=== PATIENT | female | born 2000 | race Caucasian/White ===

== ENCOUNTER 2018-06-24 13:58 | Inpatient (IN) | payer OTHER ==
[2018-06-24] MEDS ORDERED: IBUPROFEN 600 MG TAB PO (15:00)
[2018-06-24] MEDS ORDERED: LIDOCAINE 1% (MPF) 30 ML INJ INJ (15:00)
[2018-06-24] MEDS ORDERED: METHYLERGONOVINE 0.2 MG INJ IM ×2 (15:00→23:00)
[2018-06-24] MEDS ORDERED: MISOPROSTOL 200 MCG TAB PR ×2 (15:00→23:00)
[2018-06-24] MEDS ORDERED: BUTORPHANOL 2 MG INJ IV (15:00)
[2018-06-24] MEDS ORDERED: CARBOPROST 250 MCG INJ IM ×2 (15:00→23:00)
[2018-06-24] MEDS: LACTATED RINGER'S 1,000 ML IV* ×3 (15:22→22:58)
[2018-06-24] MEDS: AMPICILLIN 2 GM/NS (PMX) 100 ML IV (15:23)
[2018-06-24 15:45] LABS: ADD MAN DIFF? NO
[2018-06-24 15:47] LABS: WHITE BLOOD COUNT 19.3 10^3/ul (4.8-10.8)
[2018-06-24 15:47] LABS: BASOPHIL # 0.1 10^3/ul (0.0-0.1); BASOPHILS % 0.3 % (0.0-2.0); EOSINOPHILS % 0.1 % (0.0-7.0); HEMATOCRIT 38.8 % (37.0-47.0); HEMOGLOBIN 13.1 g/dl (12.0-16.0); LYMPHOCYTES # 1.6 10^3/ul (0.8-2.9); LYMPHOCYTES % 8.3 % (18.0-55.0); MEAN CORPUSCULAR HEMOGLOBIN 32.5 pg (29.0-33.0); MEAN CORPUSCULAR HGB CONC 33.8 g/dl (32.0-37.0); MEAN CORPUSCULAR VOLUME 96.3 fl (72.0-104.0); MEAN PLATELET VOLUME 10.5 fl (7.4-10.4); MONOCYTE # 0.8 10^3/ul (0.3-0.9); NEUTROPHIL # 16.7 10^3/ul (1.6-7.5); NEUTROPHILS % 86.4 % (30.0-74.0); PLATELET COUNT 257 10^3/UL (140-415); RED BLOOD COUNT 4.03 10^6/ul (4.20-5.40); RED CELL DISTRIBUTION WIDTH 12.2 % (11.5-14.5)
[2018-06-24 16:07] LABS: INR 0.87; PROTIME 11.9 Sec (11.9-14.9); PT RATIO 0.9
[2018-06-24 16:08] LABS: PARTIAL THROMBOPLASTIN TIME 27.3 Sec (25.0-35.0)
[2018-06-24] MEDS ORDERED: FENTAnyl 2MCG/ML-ROPIV 0.2% 100 ML (16:29)
[2018-06-24 16:49] LABS: HEPATITIS B SURFACE ANTIGEN NEGATIVE (NEGATIVE)
[2018-06-24] MEDS: FENTAnyl 2MCG/ML-ROPIV 0.2% 100 ML BAG EPI (16:53)
[2018-06-24] MEDS ORDERED: ONDANSETRON 4 MG INJ IV (17:00)
[2018-06-24] MEDS ORDERED: DIPHENHYDRAMINE 50 MG INJ IV (17:00)
[2018-06-24] MEDS ORDERED: NALOXONE (0.4 MG/ML) INJ IV (17:00)
[2018-06-24] MEDS: MINERAL OIL LIGHT 10 ML VIAL TOP (19:00)
[2018-06-24] MEDS: AMPICILLIN 1 GM/NS (PMX) 50 ML IV (19:03)
[2018-06-24 19:56] LABS: ADD UMIC YES; UR AMORPHOUS CRYSTAL FEW /HPF (NONE SEEN); UR ASCORBIC ACID 40 mg/dL (NEGATIVE); UR BILIRUBIN (Dip) NEGATIVE (NEGATIVE); UR BLOOD (Dip) NEGATIVE (NEGATIVE); UR CLARITY CLOUDY (CLEAR); UR COLOR YELLOW (YELLOW); UR GLUCOSE (Dip) NEGATIVE (NEGATIVE); UR KETONES (Dip) 2+ mg/dL (NEGATIVE); UR LEUKOCYTE ESTERASE (Dip) NEGATIVE Leu/ul (NEGATIVE); UR NITRITE (Dip) NEGATIVE (NEGATIVE); UR RBC 3 /HPF (0-5); UR SPECIFIC GRAVITY (Dip) 1.024 (1.003-1.030); UR TOTAL PROTEIN (Dip) NEGATIVE (NEGATIVE); UR UROBILINOGEN (Dip) NEGATIVE (NEGATIVE); UR WBC 5 /HPF (0-5)
[2018-06-24] MEDS: OXYTOCIN 30 UNITS/LR 500 ML IV ×2 (20:41→20:42)
[2018-06-24] MEDS ORDERED: OXYTOCIN 30 UNITS/LR 500 ML IV (23:00)
[2018-06-24] MEDS ORDERED: HYDROCODONE/APAP (5/325) TAB PO ×2 (23:00)
[2018-06-24] MEDS ORDERED: ZOLPIDEM 5 MG TAB PO (23:00)
[2018-06-24] MEDS ORDERED: DIBUCAINE 1% 30 GM OINT PR (23:00)
[2018-06-24] MEDS: LANOLIN 7 GM TUBE TOP (23:21)
[2018-06-24] MEDS: BENZOCAINE 20% 56 ML SPRAY TOP (23:21)
[2018-06-24] MEDS: WITCH HAZEL/GLYCERIN PAD PR (23:21)
[2018-06-24] MEDS: CEPHALEXIN 500 MG CAP PO (23:21)
[2018-06-24] MEDS: IBUPROFEN 600 MG TAB PO (23:22)
[2018-06-25] MEDS: CEPHALEXIN 500 MG CAP PO ×4 (05:33→23:48)
[2018-06-25] MEDS: IBUPROFEN 600 MG TAB PO ×4 (05:33→23:48)
[2018-06-25] MEDS: LACTATED RINGER'S 1,000 ML IV* (06:58)
[2018-06-25 07:59] LABS: ADD MAN DIFF? NO
[2018-06-25 08:05] LABS: BASOPHILS % 0.3 % (0.0-2.0); EOSINOPHILS # 0.1 10^3/ul (0.0-0.5); EOSINOPHILS % 0.8 % (0.0-7.0); HEMATOCRIT 32.8 % (37.0-47.0); HEMOGLOBIN 10.9 g/dl (12.0-16.0); LYMPHOCYTES # 2.1 10^3/ul (0.8-2.9); LYMPHOCYTES % 13.3 % (18.0-55.0); MEAN CORPUSCULAR HEMOGLOBIN 32.1 pg (29.0-33.0); MEAN CORPUSCULAR HGB CONC 33.2 g/dl (32.0-37.0); MEAN CORPUSCULAR VOLUME 96.5 fl (72.0-104.0); MEAN PLATELET VOLUME 9.9 fl (7.4-10.4); MONOCYTES % 6.5 % (0.0-13.0); NEUTROPHIL # 12.2 10^3/ul (1.6-7.5); NEUTROPHILS % 78.1 % (30.0-74.0); PLATELET COUNT 203 10^3/UL (140-415); RED CELL DISTRIBUTION WIDTH 12.3 % (11.5-14.5)
[2018-06-25 08:05] LABS: WHITE BLOOD COUNT 15.6 10^3/ul (4.8-10.8)
[2018-06-25] MEDS: MAGNESIUM HYDROXIDE 30ML CUP PO ×2 (08:45→21:11)
[2018-06-25] MEDS: SENNA/DOCUSATE NA (8.6MG/50MG) TAB PO ×2 (08:46→21:11)
[2018-06-25] MEDS: MEASLES,MUMPS,RUBELLA VACCINE INJ SC* (12:53)
[2018-06-25 15:15] LABS: RAPID PLASMA REAGIN NONREACTIVE (NR)
[2018-06-26] MEDS: IBUPROFEN 600 MG TAB PO ×3 (05:49→18:22)
[2018-06-26] MEDS: CEPHALEXIN 500 MG CAP PO ×3 (05:49→18:22)
[2018-06-26 08:08] LABS: ADD MAN DIFF? NO
[2018-06-26 08:17] LABS: WHITE BLOOD COUNT 11.1 10^3/ul (4.8-10.8)
[2018-06-26 08:17] LABS: BASOPHILS % 0.4 % (0.0-2.0); EOSINOPHILS # 0.2 10^3/ul (0.0-0.5); HEMATOCRIT 31.8 % (37.0-47.0); HEMOGLOBIN 10.6 g/dl (12.0-16.0); LYMPHOCYTES # 1.9 10^3/ul (0.8-2.9); LYMPHOCYTES % 17.3 % (18.0-55.0); MEAN CORPUSCULAR HEMOGLOBIN 32.9 pg (29.0-33.0); MEAN CORPUSCULAR HGB CONC 33.3 g/dl (32.0-37.0); MEAN CORPUSCULAR VOLUME 98.8 fl (72.0-104.0); MONOCYTE # 0.7 10^3/ul (0.3-0.9); MONOCYTES % 6.7 % (0.0-13.0); NEUTROPHIL # 8.1 10^3/ul (1.6-7.5); NEUTROPHILS % 72.6 % (30.0-74.0); PLATELET COUNT 238 10^3/UL (140-415); RED BLOOD COUNT 3.22 10^6/ul (4.20-5.40); RED CELL DISTRIBUTION WIDTH 12.6 % (11.5-14.5)
[2018-06-26] MEDS ORDERED: DIPHTH/TET/ACEL PERTUSS (ADULT) 0.5 ML VIAL IM* (09:00)
[2018-06-26] MEDS ORDERED: VARICELLA VACCINE LIVE/PF 1,350 UNIT/0.5 ML ML SC* (09:00)
[2018-06-26] MEDS ORDERED: MEASLES,MUMPS,RUBELLA VACCINE INJ SC* (09:00)
[2018-06-26] MEDS: MAGNESIUM HYDROXIDE 30ML CUP PO (09:03)
[2018-06-26] MEDS: SENNA/DOCUSATE NA (8.6MG/50MG) TAB PO (09:03)
== END 2018-06-26 19:45 | disposition home or self-care (01) | DRG 775 ==
LOC: OBT 13:58 → L-D 13:58 → OBT 14:30 → L-D 14:30 → PP1 22:35
PROVIDERS: Obstetrics & Gynecology
PROC: 10E0XZZ Delivery of Products of Conception, External Approach (ICD-10-PCS; principal; 2018-06-24)
PROC: 0KQM0ZZ Repair Perineum Muscle, Open Approach (ICD-10-PCS; 2018-06-24)
PROC: 3E0234Z Introduction of Serum, Toxoid and Vaccine into Muscle, Percutaneous Approach (ICD-10-PCS; 2018-06-25)
DX: O70.1 Second degree perineal laceration during delivery (principal); O69.81X0 Labor and delivery complicated by cord around neck, without compression, not applicable or unspecified; O99.824 Streptococcus B carrier state complicating childbirth; Z37.0 Single live birth; Z3A.39 39 weeks gestation of pregnancy; Z23 Encounter for immunization
CPT/HCPCS: 62319; 81001; 85025; 85610; 85730; 86592; 86850; 86900; 86901; 87086; 87340